=== PATIENT | male | born 1980 | race Caucasian/White ===

== ENCOUNTER → 2023-11-24 14:45 | Outpatient (CLI) | payer OTHER, SELFPAY ==
[2023-11-24 15:48] LABS: Influenza A - CEPHEID Flu A NEGATIVE (NEGATIVE); Influenza B - CEPHEID Flu B NEGATIVE (NEGATIVE); Respiratory Syncytial Virus Negative (Negative)
[2023-11-24 15:50] LABS: COVID-19 CEPHEID 4-PLEX PCR Negative (Negative)
== END ==
PROVIDERS: Visit Provider Physician Assistant Surgical
DX: J02.9 Acute pharyngitis, unspecified (principal); R05.1 Acute cough; R50.9 Fever, unspecified
CPT/HCPCS: 0241U; 87070

== ENCOUNTER → 2023-11-24 15:02 | Outpatient (CLI) | payer OTHER, SELFPAY ==
--- NOTE | 2023-11-24 15:05 | DI.RAD.S_ITS ---
PROCEDURE: XR CHEST 2V INDICATIONS: Cough, SOB TECHNIQUE: 2 views of the chest were acquired. COMPARISON: None. FINDINGS: Surgical changes and devices: None. Lungs and pleura: Lungs are clear. No pleural effusions or pneumothorax. Mediastinum: Mediastinal contours are normal. Heart size is normal. Bones and chest wall: No suspicious bony abnormalities. Soft tissues appear unremarkable. IMPRESSION: No acute cardiopulmonary abnormality is seen. Approved by: Demarco Rosa M.D. on 11/24/2023 at 15:15
== END ==
PROVIDERS: Referring Provider Physician Assistant Surgical; Visit Provider Physician Assistant Surgical
DX: J02.9 Acute pharyngitis, unspecified (principal); R05.1 Acute cough; R50.9 Fever, unspecified
CPT/HCPCS: 0241U; 71046; 87070

== ENCOUNTER 2024-04-07 20:05 | Inpatient (IN) | payer OTHER, SELFPAY ==
[2024-04-07] VITALS (17 sets, daily range): BP systolic 117–216; BP diastolic 69–115; PULSE 85–108; RESP 14–24; TEMP 36.3; O2SAT 91–97; BMI 35.4
[2024-04-07 20:58] LABS: Add Manual Diff / Slide Review NO; Basophils Absolute Auto 100 /uL (0-100); Eosinophils Absolute Auto 200 /uL (0-450); Eosinophils Percent Auto 2.5 % (2-4); Hematocrit 48.5 % (41-53); Hemoglobin 16.3 g/dL (13.5-17.5); Lymphocytes Absolute Auto 2400 /uL (1100-4500); Lymphocytes Percent Auto 24.3 % (25-40); Mean Corpuscular HGB Conc 33.6 % (30-36); Mean Corpuscular Hemoglobin 29.3 PG (26-34); Mean Corpuscular Volume 87.1 fL (80-100); Monocytes Absolute Auto 1100 /uL (0-900); Monocytes Percent Auto 11.1 % (3-14); Neutrophils Absolute Auto 6100 /uL (1500-7000); Neutrophils Percent Auto 61.1 % (50-75); Platelet Count 302 X10^3/uL (150-400); Red Blood Cell Count 5.57 X10^6/uL (4.5-5.9); Red Cell Distribution Width 14.1 % (11.6-14.8); White Blood Cell Count 9.9 X10^3/uL (4.5-11.0)
[2024-04-07 21:05] LABS: Alanine Aminotransferase 81 IU/L (<50); Albumin 4.6 g/dL (3.5-5.0); Albumin Globulin Ratio 1.4 (1.0-2.8); Alkaline Phosphatase 81 U/L (38-126); Aspartate Aminotransferase 46 IU/L (17-59); BUN Creatinine Ratio 20.5 (6-22); Bilirubin Total 0.7 mg/dL (0.2-1.3); Blood Urea Nitrogen 17 mg/dL (9-20); Carbon Dioxide 27 mmol/L (22-32); Chloride 103 mmol/L (98-107); Estimated Glomerular Filt Rate > 60 mL/min (>60); Globulin 3.3 g/dL (1.7-4.1); Glucose 104 mg/dL (70-100); HEMOLYSIS < 15 (0-50); Lipase 73 U/L (23-300); Potassium 4.1 mmol/L (3.4-5.1); Sodium 139 mmol/L (137-145); Total Protein 7.9 g/dL (6.3-8.2)
--- NOTE | 2024-04-07 21:34 | PC.NURSE ---
Pt attempted to void, unable to at this time.
--- NOTE | 2024-04-07 21:44 | ED_ITS ---
HPI - Abdominal Pain General Chief Complaint: Abdominal Pain Stated Complaint: abd px Time Seen by Provider: 04/07/24 20:51 Source: patient Mode of arrival: Ambulatory History of Present Illness HPI narrative: 43-year-old male without prior abdominopelvic surgeries, no prior of her lower endoscopies, complains of superior umbilical epigastric area discomfort since 0100 this morning, had nonbloody emesis and transient improvement of symptoms, now recurrent nausea with return of epigastric pain, some brackish taste in the back of his mouth. Has been on antacids in the past. Denies black or red stools. Last bowel movement yesterday. No injury or trauma or new activities. Denies fevers chills. Denies cough or shortness of breath. Denies painful or frequent urination. Related Data Home Medications Medication Instructions Recorded Confirmed bupropion HCl 150 mg tablet,12 hr 150 mg PO BID 04/08/24 04/08/24 sustained-release (Wellbutrin SR) Allergies Allergy/AdvReac Type Severity Reaction Status Date / Time No Known Drug Allergies Allergy Verified 04/07/24 20:15 Patient History Social History Smoking Status: Never smoker Smoking Status: Unknown if ever smoked Alcohol type: wine and hard liquor Exam Narrative Exam Narrative: GENERAL: Well-developed patient, in mild distress. HEAD: Atraumatic. Normocephalic. EYES: Pupils equal round and reactive. Extraocular motions intact. No scleral icterus. No injection or drainage. ENT: Nose without bleeding, purulent drainage. Throat without erythema, tonsillar hypertrophy or exudate. Airway patent. NECK: Trachea midline. Non tender CARDIOVASCULAR: Regular rate and rhythm without murmurs, gallops, or rubs. RESPIRATORY: Clear to auscultation. Breath sounds equal bilaterally. No wheezes, rales, or rhonchi. GASTROINTESTINAL: Abdomen soft, non-tender, nondistended. Not particularly tender epigastrium, nor supra umbilical region, no obvious ventral hernia including periumbilical region. EXTREMITIES: No edema or joint tenderness. BACK: Nontender without deformity or crepitance. No flank tenderness. NEURO: AOx3. Motor functions grossly nonfocal SKIN: No rash or erythema of visible areas Initial Vital Signs Initial Vital Signs: Vital Signs Temperature 97.3 F L 04/07/24 20:07 Pulse Rate 95 H 04/07/24 20:07 Respiratory Rate 20 04/07/24 20:07 Blood Pressure 150/94 H 04/07/24 20:07 Pulse Oximetry 96 04/07/24 20:07 Oxygen Delivery Method Room Air 04/07/24 20:07 Course Orders Ordered: ED Orders 04/07/24 20:43 Complete Blood Count AUTO DIFF Stat Comprehensive Metabolic Panel Stat Lactate (Lactic Acid) Stat Lipase Stat 04/07/24 21:55 CT abdomen pelvis w con Stat 04/07/24 22:20 Gastric Occult with pH Stat 04/07/24 22:30 Type and Screen Stat 04/07/24 23:25 Hemoglobin and Hematocrit Stat 04/08/24 00:06 Urine Microscopic Stat 04/08/24 00:34 Ammonia (NH3) Stat Complete Blood Count AUTO DIFF Stat Comprehensive Metabolic Panel Stat Lipase Stat 04/08/24 01:33 XR chest 1V Stat 04/08/24 02:29 XR abdomen 1V Stat Acetaminophen (Acetaminophen 325 Mg Tablet) 650 mg PO Q6H PRN PRN Reason: Fever/Mild Pain (1-3) Famotidine (Famotidine 20 Mg/2 Ml Vial) 20 mg IV NOW [facility] Last Admin: 04/07/24 22:24 Dose: 20 mg Documented By: MR Hydromorphone HCl (Hydromorphone 0.5 Mg Inj) 0.5 mg IV Q2H PRN PRN Reason: Pain, Severe (7-10) Sodium Chloride (Normal Saline 0.9%) 1,000 mls @ 100 mls/hr IV CONT [facility] Last Admin: 04/08/24 03:53 Dose: 100 mls/hr Documented By: AGW Naloxone HCl (Naloxone 0.4 Mg/Ml Vial) 0.2 mg IV Q2MIN PRN PRN Reason: Opiate Reversal Ondansetron HCl (Ondansetron 4 Mg/2 Ml Inj) 4 mg IV Q8HR PRN PRN Reason: Nausea And Vomiting Pantoprazole Sodium (Pantoprazole 40 Mg Vial) 40 mg IV BID [facility] Discontinued Medications Lorazepam (Lorazepam 2 Mg/Ml Inj) 1 mg IV NOW ONE Stop: 04/08/24 00:55 Last Admin: 04/08/24 01:01 Dose: 1 mg Documented By: SB Ondansetron HCl (Ondansetron 4 Mg/2 Ml Inj) 4 mg IV NOW ONE Stop: 04/07/24 22:19 Last Admin: 04/07/24 22:21 Dose: 4 mg Documented By: Pantoprazole Sodium (Pantoprazole 40 Mg Vial) 80 mg IV NOW ONE Stop: 04/07/24 22:16 Last Admin: 04/07/24 22:24 Dose: 80 mg Documented By: Vital Signs Vital signs: Vital Signs - 8 hr 04/07/24 21:30 04/07/24 21:31 04/07/24 21:31 Pulse Rate 91 H 89 Respiratory Rate 14 Blood Pressure 147/86 H Pulse Oximetry 97 94 Oxygen Delivery Method Oxygen Flow Rate 04/07/24 22:00 04/07/24 22:02 04/07/24 22:02 Pulse Rate 88 89 Respiratory Rate 23 20 Blood Pressure 216/115 H Pulse Oximetry 92 95 Oxygen Delivery Method Oxygen Flow Rate 04/07/24 22:18 04/07/24 22:18 04/07/24 22:29 Pulse Rate 108 H 108 H Respiratory Rate 16 24 Blood Pressure 154/75 H Pulse Oximetry 97 94 Oxygen Delivery Method Oxygen Flow Rate 04/07/24 22:30 04/07/24 22:31 04/07/24 23:00 Pulse Rate 107 H Respiratory Rate 20 Blood Pressure 131/70 117/69 Pulse Oximetry 94 Oxygen Delivery Method Room Air Oxygen Flow Rate 04/07/24 23:00 04/07/24 23:30 04/07/24 23:30 Pulse Rate 97 H 95 H Respiratory Rate 21 17 Blood Pressure 123/69 Pulse Oximetry 91 93 Oxygen Delivery Method Room Air Oxygen Flow Rate 04/07/24 23:45 04/07/24 23:59 04/07/24 23:59 Pulse Rate 96 H Respiratory Rate 20 Blood Pressure 125/77 Pulse Oximetry 94 94 Oxygen Delivery Method Nasal Cannula Oxygen Flow Rate 1 04/08/24 00:00 04/08/24 00:00 04/08/24 00:30 Pulse Rate 94 H 98 H Respiratory Rate 20 21 Blood Pressure 127/76 Pulse Oximetry 93 95 Oxygen Delivery Method Oxygen Flow Rate 04/08/24 00:30 04/08/24 01:00 04/08/24 01:00 Pulse Rate 99 H Respiratory Rate 19 Blood Pressure 136/71 133/65 Pulse Oximetry 95 Oxygen Delivery Method Nasal Cannula Oxygen Flow Rate 2 04/08/24 01:30 04/08/24 01:30 04/08/24 01:30 Pulse Rate 96 H Respiratory Rate 18 Blood Pressure 141/78 H 141/78 H Pulse Oximetry Oxygen Delivery Method Oxygen Flow Rate 04/08/24 01:36 04/08/24 01:36 04/08/24 02:00 Pulse Rate 108 H Respiratory Rate 14 Blood Pressure 138/78 128/78 Pulse Oximetry 95 Oxygen Delivery Method Room Air Oxygen Flow Rate 04/08/24 02:00 04/08/24 02:30 04/08/24 02:30 Pulse Rate 98 H 100 H Respiratory Rate 18 15 Blood Pressure 132/86 Pulse Oximetry 92 92 Oxygen Delivery Method Room Air Room Air Oxygen Flow Rate MDM - Abdominal Pain Lab Data Attestation: I reviewed the patient's lab results. Lab results narrative: White blood cell count 9900, hemoglobin 16.3, platelets adequate. Basic metabolic panel unremarkable. Liver functions and lipase normal. 04/07/24 23:25 04/07/24 20:43 Labs: Lab Results 04/07/24 04/07/24 04/07/24 Range/Units 20:43 22:20 22:30 WBC 9.9 (4.5-11.0) X10^3/uL RBC 5.57 (4.5-5.9) X10^6/uL Hgb 16.3 (13.5-17.5) g/dL Hct 48.5 (41-53) % MCV 87.1 (80-100) fL MCH 29.3 (26-34) PG MCHC 33.6 (30-36) % RDW 14.1 (11.6-14.8) % Plt Count 302 (150-400) X10^3/uL Neut % (Auto) 61.1 (50-75) % Lymph % (Auto) 24.3 L (25-40) % Mason % (Auto) 11.1 (3-14) % Eos % (Auto) 2.5 (2-4) % Baso % (Auto) 1.0 (0-2) % Neut # (Auto) 6100 (6784-4151) /uL Lymph # (Auto) 2400 (8518-3688) /uL Mason # (Auto) 1100 H (0-900) /uL Eos # (Auto) 200 (0-450) /uL Baso # (Auto) 100 (0-100) /uL Sodium 139 (137-145) mmol/L Potassium 4.1 (3.4-5.1) mmol/L Chloride 103 (98-107) mmol/L Carbon Dioxide 27 (22-32) mmol/L BUN 17 (9-20) mg/dL Creatinine 0.83 (0.66-1.25) mg/dL Estimated GFR > 60 (>60) mL/min BUN/Creatinine Ratio 20.5 (6-22) Glucose 104 H (70-100) mg/dL Lactate 1.5 (0.7-2.1) mmol/L Calcium 10.0 (8.4-10.2) mg/dL Total Bilirubin 0.7 (0.2-1.3) mg/dL AST 46 (17-59) IU/L ALT 81 H (<50) IU/L Alkaline Phosphatase 81 (38-126) U/L Total Protein 7.9 (6.3-8.2) g/dL Albumin 4.6 (3.5-5.0) g/dL Globulin 3.3 (1.7-4.1) g/dL Albumin/Globulin Ratio 1.4 (1.0-2.8) Lipase 73 (23-300) U/L Urine RBC (0-5/HPF) Urine WBC (0-5/HPF) Ur Squamous Epith Cells (0-5/HPF) Urine Bacteria (None) Ur Culture Indicated? Vol Urine Centrifuged Gastric Fluid pH 4 H (1-2) pH Gastric Occult Blood Positive H (NEGATIVE) Blood Type O Positive Antibody Screen Negative 04/07/24 04/08/24 Range/Units 23:25 00:06 WBC (4.5-11.0) X10^3/uL RBC (4.5-5.9) X10^6/uL Hgb 15.1 (13.5-17.5) g/dL Hct 44.9 (41-53) % MCV (80-100) fL MCH (26-34) PG MCHC (30-36) % RDW (11.6-14.8) % Plt Count (150-400) X10^3/uL Neut % (Auto) (50-75) % Lymph % (Auto) (25-40) % Mason % (Auto) (3-14) % Eos % (Auto) (2-4) % Baso % (Auto) (0-2) % Neut # (Auto) (9092-0921) /uL Lymph # (Auto) (1866-2646) /uL Mason # (Auto) (0-900) /uL Eos # (Auto) (0-450) /uL Baso # (Auto) (0-100) /uL Sodium (137-145) mmol/L Potassium (3.4-5.1) mmol/L Chloride (98-107) mmol/L Carbon Dioxide (22-32) mmol/L BUN (9-20) mg/dL Creatinine (0.66-1.25) mg/dL Estimated GFR (>60) mL/min BUN/Creatinine Ratio (6-22) Glucose (70-100) mg/dL Lactate (0.7-2.1) mmol/L Calcium (8.4-10.2) mg/dL Total Bilirubin (0.2-1.3) mg/dL AST (17-59) IU/L ALT (<50) IU/L Alkaline Phosphatase (38-126) U/L Total Protein (6.3-8.2) g/dL Albumin (3.5-5.0) g/dL Globulin (1.7-4.1) g/dL Albumin/Globulin Ratio (1.0-2.8) Lipase (23-300) U/L Urine RBC None seen (0-5/HPF) Urine WBC None seen (0-5/HPF) Ur Squamous Epith Cells None seen (0-5/HPF) Urine Bacteria None seen (None) Ur Culture Indicated? Cult not indicated Vol Urine Centrifuged 10ml (spun) Gastric Fluid pH (1-2) pH Gastric Occult Blood (NEGATIVE) Blood Type Antibody Screen Point of care testing: Urine Dip Bedside Urine Glucose Negative Bedside Urine Bilirubin - Negative Bedside Urine Ketone - Negative Urine Specific [place] 1.010 Bedside Urine Occult Blood - Negative Bedside Urine pH 5.0 Bedside Urine Protein +/- 15 Bedside Urine Urobilinogen - Negative Bedside Urine Nitrite - Negative Bedside Urine Leukocytes - Negative Esterase Imaging Data CT scan - abdomen/pelvis: Radiologist's Impression: [address] [address] [address] Scan Report Signed Patient: Bronson Swan MR#: [id number] : 1980 Acct:[id number] Age/Sex: 43 / M Date of Service: 04/07/24 Loc: ED Accession Number: [id number] Procedure: CT abdomen pelvis w con Ordering Provider: Jorje Haines MD PROCEDURE: CT ABDOMEN PELVIS W CON INDICATIONS: abd pain TECHNIQUE: After the administration of intravenous contrast, axial sections acquired from the lung bases to the pubic symphysis. Coronal and sagittal reformats were performed. For radiation dose reduction, the following was used: automated exposure control, adjustment of mA and/or kV according to patient size. COMPARISON: None. FINDINGS: Image quality: Diagnostic. Peritoneum: No pneumoperitoneum or ascites. Bones: No acute osseous abnormality. Lower Chest: Moderate hiatal hernia with fluid in the esophagus (2/). Liver: Normal in size and contour. Diffuse hypoattenuation. Gallbladder: No stones or pericholecystic fluid. Biliary tree: No intrahepatic or extrahepatic biliary ductal dilatation. Pancreas: Within normal limits. Spleen: Normal in size and contour. Kidneys: No hydronephrosis or obstructive urolithiasis. Adrenals: No adrenal nodularity. Bladder: Normal in size and wall thickness. : No acute abnormality. Stomach: Normal in size and contour. Ingested hyperintense material (2/38). Bowel: Dilated and fluid-filled small bowel loops with air-fluid levels up to 3 cm with transition points in the proximal jejunum (3/4), central mid abdomen (3/46) and right lower abdomen (4/83). Trace mesenteric edema at the right lower abdomen (3/48). No bowel wall hypoenhancement.. Appendix within normal limits with a single appendicolith (2/102). Lymph Nodes: No retroperitoneal, mesenteric, or inguinal lymphadenopathy. Vascular: No abdominal aortic aneurysm. The visualized arterial vasculature is patent. Soft Tissues: No acute abnormality. IMPRESSION: 1. Small-bowel obstruction with transition points in the central and right lower abdomen, with trace mesenteric edema. No other CT evidence of mesenteric ischemia. 2. Hepatic steatosis. 3. Moderate hiatal hernia with fluid in the esophagus. Dictated by: Cresencio Hendricks M.D. on 04/08/2024 at 0:03 Approved by: Cresencio Hendricks M.D. on 04/08/2024 at 0:10 [facility] Narrative Medical decision making narrative: 43-year-old male with epigastric supraumbilical area discomfort since 1 this morning, nausea and vomiting single episode that seemed to help the symptoms, now recurrent. Afebrile, sirs screen negative. No significant tenderness epigastrium or elsewhere on abdominal exam. Screening labs unremarkable. Patient we would like imaging, CT abdomen and pelvis ordered. IV Pepcid. Keep NPO. While in CT scanner just after completion of the CT study patient had emesis of large volume coffee grounds, gastroccult positive. IV Zofran, IV Protonix 80 mg bolus. Type and screen for blood. Repeat H&H from initial blood draw. Hemoglobin 16, repeat hemoglobin [address] scanning and coffee-ground emesis episode. CT abdomen and pelvis shows small bowel obstruction pattern with transition point mid abdomen and right lower quadrant, no perforation or abscess. See radiology report. IV Protonix bolus given prior. Type and screen for blood if needed. Nasogastric tube to low intermittent wall suction requested, premedication with IV Ativan, tolerated procedure well, NG tube in place. Abdominal x-ray single view, NG tube placement study. Impression: ?Nasogastric tube adequately position within the stomach. Large volume of stool within the colon suggesting constipation. Nonobstructive bowel gas pattern without pneumoperitoneum. ? See teleradiology report 0200, Case discussed with surgery Dr. Oneil, who reviewed images, agrees with treatment plan above, he can consult, admit to hospitalist service requested. Case communicated to hospitalist Dr. Knowles, accepts patient for admission Critical Care Time Critical Care Time Critical Care Time: Yes Total Critical Care Time: 35 Attestation: The high probability of a clinically significant, sudden or life threatening deterioration of the [abdominopelvic, gastrointestinal] system(s) required my full and direct attention, intervention and personal management. The aggregate critical care time was [35] minutes. This time is in addition to time spent performing reported procedures but includes the following: [x] Data Review and interpretation [x] Patient assessment and monitoring of vital signs [x] Documentation [x] Medication orders and management Discharge Plan Departure Patient Disposition: Admitted as Observation Clinical Impression: Acute upper GI bleeding, Small bowel obstruction Admit Date/Time: 04/08/24 02:37 Admit Provider: Teodoro Knowles
--- NOTE | 2024-04-07 21:55 | DI.CT.S_ITS ---
PROCEDURE: CT ABDOMEN PELVIS W CON INDICATIONS: abd pain TECHNIQUE: After the administration of intravenous contrast, axial sections acquired from the lung bases to the pubic symphysis. Coronal and sagittal reformats were performed. For radiation dose reduction, the following was used: automated exposure control, adjustment of mA and/or kV according to patient size. COMPARISON: None. FINDINGS: Image quality: Diagnostic. Peritoneum: No pneumoperitoneum or ascites. Bones: No acute osseous abnormality. Lower Chest: Moderate hiatal hernia with fluid in the esophagus (2/25). Liver: Normal in size and contour. Diffuse hypoattenuation. Gallbladder: No stones or pericholecystic fluid. Biliary tree: No intrahepatic or extrahepatic biliary ductal dilatation. Pancreas: Within normal limits. Spleen: Normal in size and contour. Kidneys: No hydronephrosis or obstructive urolithiasis. Adrenals: No adrenal nodularity. Bladder: Normal in size and wall thickness. : No acute abnormality. Stomach: Normal in size and contour. Ingested hyperintense material (2/38). Bowel: Dilated and fluid-filled small bowel loops with air-fluid levels up to 3 cm with transition points in the proximal jejunum (3/4), central mid abdomen (3/46) and right lower abdomen (4/83). Trace mesenteric edema at the right lower abdomen (3/48). No bowel wall hypoenhancement.. Appendix within normal limits with a single appendicolith (2/102). Lymph Nodes: No retroperitoneal, mesenteric, or inguinal lymphadenopathy. Vascular: No abdominal aortic aneurysm. The visualized arterial vasculature is patent. Soft Tissues: No acute abnormality. IMPRESSION: 1. Small-bowel obstruction with transition points in the central and right lower abdomen, with trace mesenteric edema. No other CT evidence of mesenteric ischemia. 2. Hepatic steatosis. 3. Moderate hiatal hernia with fluid in the esophagus. Dictated by: Cresencio Hendricks M.D. on 04/08/2024 at 0:03 Approved by: Cresencio Hendricks M.D. on 04/08/2024 at 0:10
[2024-04-07] MEDS: ONDANSETRON 4 MG/2 ML INJ IV (22:21)
[2024-04-07] MEDS: PANTOPRAZOLE 40 MG VIAL 80 MG IV (22:24)
[2024-04-07] MEDS: FAMOTIDINE 20 MG/2 ML VIAL IV (22:24)
--- NOTE | 2024-04-07 22:41 | PC.NURSE ---
Patient vomited after CT scan completed; approximately 600-700ml coffee ground emesis came out; sample was sent for gastric occult ph testing.
[2024-04-07 22:55] LABS: Occult Blood Gastric Fluid POSITIVE (NEGATIVE); PH Gastric Fluid 4 pH (1-2)
[2024-04-07 23:37] LABS: Hematocrit 44.9 % (41-53); Hemoglobin 15.1 g/dL (13.5-17.5)
[2024-04-08] VITALS (15 sets, daily range): BP systolic 123–143; BP diastolic 65–90; PULSE 79–108; RESP 14–28; TEMP 36.6–36.9; O2SAT 92–99; BMI 35.4
--- NOTE | 2024-04-08 | DI.RAD.S_ITS ---
PROCEDURE: XR GASTROGRAFIN CHALLENGE COMPARISON: [facility], CR, XR ABDOMEN 1V, 04/08/2024, 2:52. INDICATIONS: SBO FINDINGS: Contrast is seen throughout the small bowel and colon into the rectum. Mildly dilated loops of small bowel measure up to 3.4 centimeters. Enteric tube with tip and side port projecting below the diaphragm. IMPRESSION: Contrast is seen throughout the small bowel and colon into the rectum. Mildly dilated loops of small bowel measuring up to 3.4 centimeters. Dictated by: Twin Evans M.D. on 04/08/2024 at 17:18 Approved by: Twin Evans M.D. on 04/08/2024 at 17:20
[2024-04-08 00:01] LABS: Lactate (Lactic Acid) 1.5 mmol/L (0.7-2.1)
[2024-04-08 00:52] LABS: Bacteria Urine None Seen; Culture Indicated Urine Cult Not Indicated; RBC Urine None Seen (0-5/HPF); Squamous Epithelial Cell Urine None Seen (0-5/HPF); Urine Volume 10mL (spun); WBC Urine None Seen (0-5/HPF)
[2024-04-08] MEDS: LORazepam 2 MG/ML INJ 1 MG IV (01:01)
--- NOTE | 2024-04-08 01:33 | DI.RAD.S_ITS ---
PROCEDURE: XR CHEST 1V INDICATIONS: NG tube placement TECHNIQUE: One view of the chest was acquired. COMPARISON: [facility], CR, XR CHEST 2V, 11/24/2023, 15:11. FINDINGS: Surgical changes and devices: Enteric tube tip and side port lodged in the mid-distal thoracic esophagus. Lungs and pleura: Low lung volumes without focal lung consolidation. No pleural effusions or pneumothorax. Mediastinum: Mediastinal contours appear normal. Heart size is normal. Bones and chest wall: No suspicious bony lesions. Overlying soft tissues appear unremarkable. IMPRESSION: Enteric tube tip and side port in the mid-distal thoracic esophagus. Further advancement by 20-30 cm recommended with repeat abdomen radiograph focusing on the upper quadrants. Dictated by: Cresencio Hendricks M.D. on 04/08/2024 at 2:00 Approved by: Cresencio Hendricks M.D. on 04/08/2024 at 2:01
--- NOTE | 2024-04-08 02:28 | PC.NURSE ---
NG tube advanced approx 25cm per radiologist recommendation from [facility]. Repeat xray ordered for confirmation.
--- NOTE | 2024-04-08 02:29 | DI.RAD.S_ITS ---
PROCEDURE: XR ABDOMEN 1V INDICATIONS: NG tube adjustment TECHNIQUE: One view of the abdomen acquired. COMPARISON: [facility], CT, CT ABDOMEN PELVIS W CON, 04/07/2024, 22:00. FINDINGS: Surgical changes and devices: Enteric tube with tip and side port projecting over the expected location of the stomach. Bowel: Nonobstructive bowel gas pattern. Large stool burden. Soft tissues: No suspicious abdominal calcifications. Visualized solid organ contours appear normal in size. Contrast within the urinary bladder. Bones: No suspicious bony lesions. IMPRESSION: Nasogastric tube with tip and side port projecting over the expected location of the stomach. Nonobstructive bowel gas pattern. Large stool burden, correlate for constipation. Findings are concordant with preliminary interpretation provided by [facility]. Dictated by: Twin Evans M.D. on 04/08/2024 at 8:33 Approved by: Twin Evans M.D. on 04/08/2024 at 8:40
[2024-04-08] MEDS: SODIUM CHLORIDE 0.9% 1,000 ML 100 ML IV (03:53)
--- NOTE | 2024-04-08 07:01 | PM.HP.1 ---
History of Present Illness History of Present Illness Chief complaint: abd px Narrative: 43-year-old male with past medical history of depression low denies any prior history of abdominal surgery presents with abdominal pain. Per the patient's report, the patient started to have upper abdominal pain earlier this morning. The patient started to have nausea and nonbloody vomiting. The patient denies any prior history of GI bleeding and has never had an endoscopy before. The patient denies any alcohol abuse or any excessive use of NSAID. Otherwise the patient denies any diarrhea, bloody stool, melena fever, chills, chest pain, shortness of breath, coughing or dysuria. In our emergency room, the patient was hemodynamically stable. Labs were relatively benign with hemoglobin 16. ALT 81. Patient did have an emesis that was coffee-ground while in our ER per the ER physician which was occult positive. CT scan shows signs of small bowel obstruction. The patient was given IV fluid, IV antiemetic, pain control as well as IV pantoprazole. General surgery was consulted and recommended to admit the patient. NG tube was placed. [facility] [place] Social History Smoking Status: Never smoker Meds Home Medications and Allergies Home Medications Medication Instructions Recorded Confirmed Type bupropion HCl 150 mg tablet,12 hr 150 mg PO BID 04/08/24 04/08/24 History sustained-release (Wellbutrin SR) Allergies Allergy/AdvReac Type Severity Reaction Status Date / Time No Known Drug Allergies Allergy Verified 04/07/24 20:15 Review of Systems Review of Systems ROS: Yes All systems reviewed with the patient and are negative except as otherwise documented Exam Vital Signs (past 8 hours): - 04/07/24 23:30 04/07/24 23:30 04/07/24 23:45 Temperature Pulse Rate 95 H Respiratory Rate 17 Blood Pressure 123/69 Pulse Oximetry 93 94 Oxygen Delivery Method Nasal Cannula Oxygen Flow Rate 1 04/07/24 23:59 04/07/24 23:59 04/08/24 00:00 Temperature Pulse Rate 96 H 94 H Respiratory Rate 20 20 Blood Pressure 125/77 Pulse Oximetry 94 93 Oxygen Delivery Method Oxygen Flow Rate 04/08/24 00:00 04/08/24 00:30 04/08/24 00:30 Temperature Pulse Rate 98 H Respiratory Rate 21 Blood Pressure 127/76 136/71 Pulse Oximetry 95 Oxygen Delivery Method Oxygen Flow Rate 04/08/24 01:00 02/18/25 01:00 04/08/24 01:30 Temperature Pulse Rate 99 H 96 H Respiratory Rate 19 18 Blood Pressure 133/65 Pulse Oximetry 95 Oxygen Delivery Method Nasal Cannula Oxygen Flow Rate 2 04/08/24 01:30 04/08/24 01:30 04/08/24 01:36 Temperature Pulse Rate Respiratory Rate Blood Pressure 141/78 H 141/78 H 138/78 Pulse Oximetry Oxygen Delivery Method Oxygen Flow Rate 04/08/24 01:36 04/08/24 02:00 04/08/24 02:00 Temperature Pulse Rate 108 H 98 H Respiratory Rate 14 18 Blood Pressure 128/78 Pulse Oximetry 95 92 Oxygen Delivery Method Room Air Room Air Oxygen Flow Rate 04/08/24 02:30 04/08/24 02:30 04/08/24 03:00 Temperature Pulse Rate 100 H 97 H Respiratory Rate 15 28 H Blood Pressure 132/86 Pulse Oximetry 92 96 Oxygen Delivery Method Room Air Nasal Cannula Oxygen Flow Rate 2 04/08/24 03:01 04/08/24 03:01 04/08/24 03:14 Temperature Pulse Rate 97 H Respiratory Rate 16 Blood Pressure 123/90 Pulse Oximetry 97 Oxygen Delivery Method Nasal Cannula Nasal Cannula Oxygen Flow Rate 2 04/08/24 03:35 Temperature 97.8 F Pulse Rate 82 Respiratory Rate 20 Blood Pressure 124/87 Pulse Oximetry 97 Oxygen Delivery Method Oxygen Flow Rate 2 Oxygen Delivery Method Nasal Cannula Oxygen Flow Rate 2 Narrative Exam Narrative: Physical Exam: GENERAL: The patient is not in any acute distressed. Awake and alert. HEENT: Nonicteric sclerae, PERRLA, EOMI. Oropharynx clear. Moist mucous membranes. Conjunctivae appear well perfused. HEART: Regular rate and rhythm without murmurs. No lower extremities edema. LUNGS: Clear to auscultation bilaterally. No wheezing, crackles or rhonchi ABDOMEN: Soft, positive bowel sounds, nontender. SKIN: No rash, no excessive bruising, petechiae, or purpura. NEUROLOGIC: AxO x 3. Cranial nerves II-XII intact without motor/sensory deficit. Objective Labs 04/07/24 23:25 04/07/24 20:43 Labs: Laboratory Results - last 24 hr 04/07/24 04/07/24 04/07/24 20:43 22:20 22:30 WBC 9.9 RBC 5.57 Hgb 16.3 Hct 48.5 MCV 87.1 MCH 29.3 MCHC 33.6 RDW 14.1 Plt Count 302 Neut % (Auto) 61.1 Lymph % (Auto) 24.3 L [place] % (Auto) 11.1 Eos % (Auto) 2.5 Baso % (Auto) 1.0 Neut # (Auto) 6100 Lymph # (Auto) 2400 [place] # (Auto) 1100 H Eos # (Auto) 200 Baso # (Auto) 100 Sodium 139 Potassium 4.1 Chloride 103 Carbon Dioxide 27 BUN 17 Creatinine 0.83 Estimated GFR > 60 BUN/Creatinine Ratio 20.5 Glucose 104 H Lactate 1.5 Calcium 10.0 Total Bilirubin 0.7 AST 46 ALT 81 H Alkaline Phosphatase 81 Total Protein 7.9 Albumin 4.6 Globulin 3.3 Albumin/Globulin Ratio 1.4 Lipase 73 Urine RBC Urine WBC Ur Squamous Epith Cells Urine Bacteria Ur Culture Indicated? Vol Urine Centrifuged Gastric Fluid pH 4 H Gastric Occult Blood Positive H Blood Type O Positive Antibody Screen Negative 04/07/24 04/08/24 23:25 00:06 WBC RBC Hgb 15.1 Hct 44.9 MCV MCH MCHC RDW Plt Count Neut % (Auto) Lymph % (Auto) [place] % (Auto) Eos % (Auto) Baso % (Auto) Neut # (Auto) Lymph # (Auto) [place] # (Auto) Eos # (Auto) Baso # (Auto) Sodium Potassium Chloride Carbon Dioxide BUN Creatinine Estimated GFR BUN/Creatinine Ratio Glucose Lactate Calcium Total Bilirubin AST ALT Alkaline Phosphatase Total Protein Albumin Globulin Albumin/Globulin Ratio Lipase Urine RBC None seen Urine WBC None seen Ur Squamous Epith Cells None seen Urine Bacteria None seen Ur Culture Indicated? Cult not indicated Vol Urine Centrifuged 10ml (spun) Gastric Fluid pH Gastric Occult Blood Blood Type Antibody Screen Assessment & Plan Assessment & Plan narrative: Small bowel obstruction. Admit the patient to medical inpatient. NPO. IV fluid. Pain control. Continue NGT. IV antiemetics prn. Appreciate general surgery input and management. Possible upper GI bleed. Continue to monitor hemoglobin and recurrent bleeding. Patient is hemodynamically stable. Continue IV pantoprazole. Patient denies any history of alcohol abuse or NSAID excessive use. Endoscope per general surgery. Depression. Resume home medication when able to take p.o. DVT prophylaxis SCDs due to GI bleeding. CODE STATUS full code. Disposition likely home in 2 days. Right thumb infection. Admit the patient to medical inpatient. Of note orthopedic surgeon was consulted and recommended IV antibiotics for now. The patient did have her fingernail of the right thumb removed by ER physician. Continue pain control. IV fluid. Hold off any CT imaging for now per orthopedic surgery. Appreciate further input and management per orthopedic surgeon. Will continue vancomycin and switch CSF for p.m. as he has broader coverage since patient fell Keflex treatment twice as outpatient. Hypertension. Monitor blood pressure and resume home medication accordingly. Anxiety. Resume home medication. DVT prophylaxis SCDs CODE STATUS full code. Disposition likely home in 2 days. Time-Based Coding :: [TOTAL MINUTES] spent with patient and on the chart (including review of chart, obtaining history, exam, reviewing outside data, placing orders, documenting exam and treatment plan, and counseling patient) on [DATE]. Quality VTE Deep Vein Thrombosis/Pulmonary Embolism Present on Admission: No
[2024-04-08 07:48] LABS: Add Manual Diff / Slide Review NO; Basophils Absolute Auto 100 /uL (0-100); Basophils Percent Auto 0.9 % (0-2); Eosinophils Absolute Auto 300 /uL (0-450); Eosinophils Percent Auto 3.8 % (2-4); Hematocrit 42.5 % (41-53); Hemoglobin 14.1 g/dL (13.5-17.5); Lymphocytes Absolute Auto 1700 /uL (1100-4500); Lymphocytes Percent Auto 22.7 % (25-40); Mean Corpuscular HGB Conc 33.1 % (30-36); Mean Corpuscular Hemoglobin 28.8 PG (26-34); Mean Corpuscular Volume 87.1 fL (80-100); Monocytes Absolute Auto 900 /uL (0-900); Monocytes Percent Auto 11.9 % (3-14); Neutrophils Absolute Auto 4600 /uL (1500-7000); Neutrophils Percent Auto 60.7 % (50-75); Platelet Count 257 X10^3/uL (150-400); Red Blood Cell Count 4.88 X10^6/uL (4.5-5.9); White Blood Cell Count 7.6 X10^3/uL (4.5-11.0)
[2024-04-08 07:55] LABS: Ammonia (NH3) < 9 umol/L (9-30)
[2024-04-08 08:01] LABS: Alanine Aminotransferase 61 IU/L (<50); Albumin 3.9 g/dL (3.5-5.0); Albumin Globulin Ratio 1.6 (1.0-2.8); Alkaline Phosphatase 68 U/L (38-126); Aspartate Aminotransferase 36 IU/L (17-59); BUN Creatinine Ratio 23.9 (6-22); Bilirubin Total 0.6 mg/dL (0.2-1.3); Blood Urea Nitrogen 21 mg/dL (9-20); Calcium 9.1 mg/dL (8.4-10.2); Carbon Dioxide 25 mmol/L (22-32); Chloride 105 mmol/L (98-107); Estimated Glomerular Filt Rate > 60 mL/min (>60); Globulin 2.5 g/dL (1.7-4.1); Glucose 107 mg/dL (70-100); HEMOLYSIS < 15 (0-50); Lipase 92 U/L (23-300); Potassium 4.1 mmol/L (3.4-5.1); Sodium 139 mmol/L (137-145); Total Protein 6.4 g/dL (6.3-8.2)
--- NOTE | 2024-04-08 08:12 | PM.HP.1 ---
History of Present Illness History of Present Illness Date Patient Seen: 04/08/24 Chief complaint: abd px Narrative: From night doctor: 43-year-old male with past medical history of depression low denies any prior history of abdominal surgery presents with abdominal pain. Per the patient's report, the patient started to have upper abdominal pain earlier this morning. The patient started to have nausea and nonbloody vomiting. The patient denies any prior history of GI bleeding and has never had an endoscopy before. The patient denies any alcohol abuse or any excessive use of NSAID. Otherwise the patient denies any diarrhea, bloody stool, melena fever, chills, chest pain, shortness of breath, coughing or dysuria. In our emergency room, the patient was hemodynamically stable. Labs were relatively benign with hemoglobin 16. ALT 81. Patient did have an emesis that was coffee-ground while in our ER per the ER physician which was occult positive. CT scan shows signs of small bowel obstruction. The patient was given IV fluid, IV antiemetic, pain control as well as IV pantoprazole. General surgery was consulted and recommended to admit the patient. NG tube was placed. Subjective: He denies history of abdomen surgery or bowel obstruction. His symptoms began yesterday abruptly. No flatus or BM overnight. He was still somewhat distended. Denies smoking, does drink alcohol about 1 drink a day. No history of ulcers. NG tube has improved his symptoms. General surgery is consulted and this is pending. [facility] Social History household members: spouse and children Smoking Status: Never smoker Meds Home Medications and Allergies Home Medications Medication Instructions Recorded Confirmed Type bupropion HCl 150 mg tablet,12 hr 150 mg PO BID 04/08/24 04/08/24 History sustained-release (Wellbutrin SR) Allergies Allergy/AdvReac Type Severity Reaction Status Date / Time No Known Drug Allergies Allergy Verified 04/07/24 20:15 Review of Systems Review of Systems Narrative: All else reviewed and otherwise unremarkable except as noted in the history and physical. Exam Vital Signs (past 8 hours): - 04/08/24 00:30 04/08/24 00:30 04/08/24 01:00 Temperature Pulse Rate 98 H 99 H Respiratory Rate 21 19 Blood Pressure 136/71 Pulse Oximetry 95 95 Oxygen Delivery Method Nasal Cannula Oxygen Flow Rate 2 04/08/24 01:00 04/08/24 01:30 04/08/24 01:30 Temperature Pulse Rate 96 H Respiratory Rate 18 Blood Pressure 133/65 141/78 H Pulse Oximetry Oxygen Delivery Method Oxygen Flow Rate 04/08/24 01:30 04/08/24 01:36 04/08/24 01:36 Temperature Pulse Rate 108 H Respiratory Rate 14 Blood Pressure 141/78 H 138/78 Pulse Oximetry 95 Oxygen Delivery Method Room Air Oxygen Flow Rate 04/08/24 02:00 04/08/24 02:00 04/08/24 02:30 Temperature Pulse Rate 98 H 100 H Respiratory Rate 18 15 Blood Pressure 128/78 Pulse Oximetry 92 92 Oxygen Delivery Method Room Air Room Air Oxygen Flow Rate 04/08/24 02:30 04/08/24 03:00 04/08/24 03:01 Temperature Pulse Rate 97 H 97 H Respiratory Rate 28 H 16 Blood Pressure 132/86 Pulse Oximetry 96 97 Oxygen Delivery Method Nasal Cannula Nasal Cannula Oxygen Flow Rate 2 2 04/08/24 03:01 04/08/24 03:14 04/08/24 03:35 Temperature 97.8 F Pulse Rate 82 Respiratory Rate 20 Blood Pressure 123/90 124/87 Pulse Oximetry 97 Oxygen Delivery Method Nasal Cannula Oxygen Flow Rate 2 Oxygen Delivery Method Nasal Cannula Oxygen Flow Rate 2 Narrative Exam Narrative: NAD, alert and oriented, fluent speech, calm. NG tube Normocephalic skull, EOMI, anicteric sclera, symmetric pupils. Oropharynx unremarkable, no droop. Neck supple, midline trachea, no adenopathy. Lungs clear, normal rate and effort. Heart regular, no murmur gallop or rub. Abdomen is soft, distended, hypertympanic, nontender. Increased bowel tones are noted.. Extremities are free of edema. Skin is free of rash or lesions. Joints are not swollen or deformed. Judgment appears to be normal. Objective Imaging Multiple studies:: Radiologist's impression: Chest x-ray: My read, clear lung chaudhry and nonspecific air pattern. Abdomen x-ray: asogastric tube with tip and side port projecting over the expected location of the stomach. Nonobstructive bowel gas pattern. Large stool burden, correlate for constipation. Chest x-ray: Enteric tube tip and side port in the mid-distal thoracic esophagus. Further advancement by 20-30 cm recommended with repeat abdomen radiograph focusing on the upper quadrants. Abdomen pelvis CT: 1. Small-bowel obstruction with transition points in the central and right lower abdomen, with trace mesenteric edema. No other CT evidence of mesenteric ischemia. 2. Hepatic steatosis. 3. Moderate hiatal hernia with fluid in the esophagus. Labs 04/08/24 07:34 04/08/24 07:34 Labs: Laboratory Results - last 24 hr 04/07/24 04/07/24 04/07/24 20:43 22:20 22:30 WBC 9.9 RBC 5.57 Hgb 16.3 Hct 48.5 MCV 87.1 MCH 29.3 MCHC 33.6 RDW 14.1 Plt Count 302 Neut % (Auto) 61.1 Lymph % (Auto) 24.3 L [place] % (Auto) 11.1 Eos % (Auto) 2.5 Baso % (Auto) 1.0 Neut # (Auto) 6100 Lymph # (Auto) 2400 [place] # (Auto) 1100 H Eos # (Auto) 200 Baso # (Auto) 100 Sodium 139 Potassium 4.1 Chloride 103 Carbon Dioxide 27 BUN 17 Creatinine 0.83 Estimated GFR > 60 BUN/Creatinine Ratio 20.5 Glucose 104 H Lactate 1.5 Calcium 10.0 Total Bilirubin 0.7 AST 46 ALT 81 H Alkaline Phosphatase 81 Ammonia Total Protein 7.9 Albumin 4.6 Globulin 3.3 Albumin/Globulin Ratio 1.4 Lipase 73 Urine RBC Urine WBC Ur Squamous Epith Cells Urine Bacteria Ur Culture Indicated? Vol Urine Centrifuged Gastric Fluid pH 4 H Gastric Occult Blood Positive H Blood Type O Positive Antibody Screen Negative 04/07/24 04/08/24 04/08/24 23:25 00:06 07:34 WBC 7.6 RBC 4.88 Hgb 15.1 14.1 Hct 44.9 42.5 MCV 87.1 MCH 28.8 MCHC 33.1 RDW 14.0 Plt Count 257 Neut % (Auto) 60.7 Lymph % (Auto) 22.7 L [place] % (Auto) 11.9 Eos % (Auto) 3.8 Baso % (Auto) 0.9 Neut # (Auto) 4600 Lymph # (Auto) 1700 [place] # (Auto) 900 Eos # (Auto) 300 Baso # (Auto) 100 Sodium 139 Potassium 4.1 Chloride 105 Carbon Dioxide 25 BUN 21 H Creatinine 0.88 Estimated GFR > 60 BUN/Creatinine Ratio 23.9 H Glucose 107 H Lactate Calcium 9.1 Total Bilirubin 0.6 AST 36 ALT 61 H Alkaline Phosphatase 68 Ammonia < 9 L Total Protein 6.4 Albumin 3.9 Globulin 2.5 Albumin/Globulin Ratio 1.6 Lipase 92 Urine RBC None seen Urine WBC None seen Ur Squamous Epith Cells None seen Urine Bacteria None seen Ur Culture Indicated? Cult not indicated Vol Urine Centrifuged 10ml (spun) Gastric Fluid pH Gastric Occult Blood Blood Type Antibody Screen Assessment & Plan Assessment & Plan narrative: 1. Small bowel obstruction. Present on admission and active. 2. Possible upper GI bleed. Present on admission and active. 3. Depression. Stable. 4. Obesity class 2 with BMI of 35, stable. Plan: -NG tube to suction -surgical consult, consider Gastrografin challenge. -nonspecific care pattern noted on plain imaging, transition point noted on CT. -denies symptoms withdrawal, monitor for. -monitor hemoglobin, PPI. DOLORES: 04/10. DVT prophylaxis SCDs due to GI bleeding. CODE STATUS full code. Anticipate a 2 midnight stay, supports inpatient status. Time-Based Coding :: 35 min spent with patient and on the chart (including review of chart, obtaining history, exam, reviewing outside data, placing orders, documenting exam and treatment plan, and counseling patient) on 04/08. Quality VTE Deep Vein Thrombosis/Pulmonary Embolism Present on Admission: No MIPS - Admit I confirm the patient?s Advance Care Plan is present, Code status is documented, Surrogate decision maker is in patient?s record [If Yes, STOP here]: Yes
--- NOTE | 2024-04-08 08:48 | DI.RAD.S_ITS ---
PROCEDURE: XR CHEST 1V INDICATIONS: ng tube placement TECHNIQUE: One view of the chest was acquired. COMPARISON: [facility], , XR CHEST 1V, 04/08/2024, 1:38. FINDINGS: Surgical changes and devices: Nasogastric tube in the stomach Lungs and pleura: Lungs are clear. No pleural effusions or pneumothorax. Mediastinum: Mediastinal contours appear normal. Heart size is normal. Bones and chest wall: No suspicious bony lesions. Overlying soft tissues appear unremarkable. IMPRESSION: Nasogastric tube well positioned in the stomach Approved by: Demarco Rosa M.D. on 04/08/2024 at 11:07
[2024-04-08] MEDS: PANTOPRAZOLE 40 MG VIAL IV ×2 (09:36→20:48)
--- NOTE | 2024-04-08 10:54 | CM.DANOTE ---
Initial DCP Assessment Visit Note Reviewed EMR and team rounds for patient's medical status and updates. Met with patient at bedside to introduce self and role. Patient was found to be alert and oriented. Patient was visibly uncomfortable when we spoke, he was still experiencing abdominal pain. Patient said he resides at home with his and two sons. deejay is for patient to discharge home with transportation help from his spouse if needed. Payor: Lesley DE LA CRUZ PCP: None PAtient is a 43 year old male who presented to the ER on 04/07/24 for abdominal pain, nausea, and vomiting. at the ER patient was found to have a small bowel obstruction seen on CT scan and a hiatal hernial. Patient was also found to have an upper GI bleed with coffee ground emesis at the ER. A nasogastic tube was placed. Patient will be having endoscopy today. Vomiting appears to be controlled currently. Patient is planning to discharge home after this hospitalization with help from his spouse if needed. 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 Patient will lean on his spouse to help with caregiving if needed. DCP will continue to monitor for for discharge needs. Discharge Planning/Care Management CM Discharge Assessment Start: 04/08/24 09:32 Freq: Status: Active Protocol: Document 04/08/24 09:32 NIRMAL (Rec: 04/08/24 09:38 NIRMAL [id number]) Discharge Planning Assessment Assigned Biochemical Development Engineer Jovany Quinones RN DPOA/Assigned Designee Name None Advance Directives? No Advance Directives on File No History Provided By Patient,Medical Record Expected Length of Stay 2 Has Patient been admitted in last 30 No days? Prior Living Arrangements House Household Members spouse,children Comment Patient resides with his spouse and two sons. Type of transporation used prior to Drives own vehicle admit Independent with ADL's Yes Is patient alert and oriented? Yes Comment Patient does not need any assistance. Caregiver for Another Yes: Patient provides care for his 18 year old son. Comment No services used. Comment None Comment Home with assistance from spouse. Barriers to Discharge No Discharge Plan Home Transportation Arrangement Transportation by self or spouse if patient is not able to self transport. Referrals Initiated None needed Whiteboard Updated in Patient Room with Yes name and ext. # of Biochemical Development Engineer Review Status In Process Please Provide Date Initial DC 04/08/24 Assessment Was Performed
--- NOTE | 2024-04-08 12:09 | PM.CN.IH.1 ---
History of Present Illness Consult details Date Patient Seen: 04/08/24 Time Patient Seen: 12:10 Chief complaint: abd px Reason for consult: Small bowel obstruction, gastric occult positive emesis Requesting provider: Adria Malave Narrative: 43-year-old white male, obese, no prior abdominal surgeries presents with 2 episodes of emesis that has a blood tinge to it and was Hemoccult positive. CT scan suggestive of a small-bowel obstruction. He has not had a bowel movement for 2 days. He did not eat much yesterday. The day before he did not eat anything unusual, accepted gluten free pizza around midnight the night before. No family history of Crohn's disease, ulcerative colitis or colon cancer. Meds Home Medications and Allergies Home Medications Medication Instructions Recorded Confirmed Type bupropion HCl 150 mg tablet,12 hr 150 mg PO BID 04/08/24 04/08/24 History sustained-release (Wellbutrin SR) Allergies Allergy/AdvReac Type Severity Reaction Status Date / Time No Known Drug Allergies Allergy Verified 04/07/24 20:15 Review of Systems Review of Systems ROS: Yes All systems reviewed with the patient and are negative except as otherwise documented Exam Vital Signs (past 8 hours): - 04/08/24 07:00 04/08/24 07:10 Temperature 98.0 F Pulse Rate 94 H Respiratory Rate 15 Blood Pressure 137/82 Pulse Oximetry 98 99 Oxygen Delivery Method Nasal Cannula Oxygen Flow Rate 0 2 Oxygen Delivery Method Nasal Cannula Oxygen Flow Rate 2 Narrative Exam Narrative: Gen: NAD, sitting comfortably in bed, appears well HEENT: Sclera are anicteric, head is normocephalic and atraumatic, trachea is midline. CV: RRR, no JVD Resp: clear to auscultation bilaterally, equal chest wall movement bilaterally Abd: soft, nontender, distended Ext: no edema, full range of motion Neuro: Cranial nerves II-XII grossly intact, no focal deficits Skin: No erythema or ecchymosis Objective Imaging CT scan - abdomen: My impression: CT scan is suggestive of a bowel obstruction, less likely gastroenteritis. Contrast challenge pending Labs 04/08/24 07:34 04/08/24 07:34 Labs: Laboratory Results - last 24 hr 04/07/24 04/07/24 04/07/24 20:43 22:20 22:30 WBC 9.9 RBC 5.57 Hgb 16.3 Hct 48.5 MCV 87.1 MCH 29.3 MCHC 33.6 RDW 14.1 Plt Count 302 Neut % (Auto) 61.1 Lymph % (Auto) 24.3 L [place] % (Auto) 11.1 Eos % (Auto) 2.5 Baso % (Auto) 1.0 Neut # (Auto) 6100 Lymph # (Auto) 2400 [place] # (Auto) 1100 H Eos # (Auto) 200 Baso # (Auto) 100 Sodium 139 Potassium 4.1 Chloride 103 Carbon Dioxide 27 BUN 17 Creatinine 0.83 Estimated GFR > 60 BUN/Creatinine Ratio 20.5 Glucose 104 H Lactate 1.5 Calcium 10.0 Total Bilirubin 0.7 AST 46 ALT 81 H Alkaline Phosphatase 81 Ammonia Total Protein 7.9 Albumin 4.6 Globulin 3.3 Albumin/Globulin Ratio 1.4 Lipase 73 Urine RBC Urine WBC Ur Squamous Epith Cells Urine Bacteria Ur Culture Indicated? Vol Urine Centrifuged Gastric Fluid pH 4 H Gastric Occult Blood Positive H Blood Type O Positive Antibody Screen Negative 04/07/24 04/08/24 04/08/24 23:25 00:06 07:34 WBC 7.6 RBC 4.88 Hgb 15.1 14.1 Hct 44.9 42.5 MCV 87.1 MCH 28.8 MCHC 33.1 RDW 14.0 Plt Count 257 Neut % (Auto) 60.7 Lymph % (Auto) 22.7 L [place] % (Auto) 11.9 Eos % (Auto) 3.8 Baso % (Auto) 0.9 Neut # (Auto) 4600 Lymph # (Auto) 1700 [place] # (Auto) 900 Eos # (Auto) 300 Baso # (Auto) 100 Sodium 139 Potassium 4.1 Chloride 105 Carbon Dioxide 25 BUN 21 H Creatinine 0.88 Estimated GFR > 60 BUN/Creatinine Ratio 23.9 H Glucose 107 H Lactate Calcium 9.1 Total Bilirubin 0.6 AST 36 ALT 61 H Alkaline Phosphatase 68 Ammonia < 9 L Total Protein 6.4 Albumin 3.9 Globulin 2.5 Albumin/Globulin Ratio 1.6 Lipase 92 Urine RBC None seen Urine WBC None seen Ur Squamous Epith Cells None seen Urine Bacteria None seen Ur Culture Indicated? Cult not indicated Vol Urine Centrifuged 10ml (spun) Gastric Fluid pH Gastric Occult Blood Blood Type Antibody Screen PFSH Social History household members: spouse and children Tobacco & Substance Use Smoking Status: Never smoker Assessment & Plan Assessment and plan (1) Small bowel obstruction: Status: Acute (2) Acute upper GI bleeding: Status: Acute Assessment & Plan narrative: He has not anemic or tachycardic, suspect that the blood from the emesis might be from gastritis or a very mild Mickie-Li tear. Contrast challenge to see if this was truly a bowel obstruction. Given that he has had no previous abdominal surgery, I have a higher index of suspicion that he would need laparoscopy today. Time-Based Coding :: [TOTAL MINUTES] spent with patient and on the chart (including review of chart, obtaining history, exam, reviewing outside data, placing orders, documenting exam and treatment plan, and counseling patient) on [DATE]. PROFEE Charge Codes Inpatient or Observation consultation: 15808
[2024-04-08 12:17] LABS: Hematocrit 41.2 % (41-53); Hemoglobin 13.7 g/dL (13.5-17.5)
[2024-04-09 01:17] VITALS: BP 123/81; PULSE 85; RESP 19; TEMP 37.2; O2SAT 96
[2024-04-09] MEDS: SODIUM CHLORIDE 0.9% 1,000 ML 100 ML IV (01:18)
[2024-04-09 06:31] VITALS: BP 127/83; PULSE 88; RESP 17; TEMP 36.6; O2SAT 92
[2024-04-09 06:47] LABS: Hematocrit 38.7 % (41-53); Hemoglobin 12.8 g/dL (13.5-17.5); Mean Corpuscular HGB Conc 33.2 % (30-36); Mean Corpuscular Hemoglobin 29.1 PG (26-34); Mean Corpuscular Volume 87.7 fL (80-100); Platelet Count 219 X10^3/uL (150-400); Red Blood Cell Count 4.41 X10^6/uL (4.5-5.9); Red Cell Distribution Width 13.8 % (11.6-14.8); White Blood Cell Count 7.1 X10^3/uL (4.5-11.0)
[2024-04-09 06:57] LABS: BUN Creatinine Ratio 22.1 (6-22); Blood Urea Nitrogen 19 mg/dL (9-20); Calcium 8.6 mg/dL (8.4-10.2); Carbon Dioxide 26 mmol/L (22-32); Chloride 108 mmol/L (98-107); Estimated Glomerular Filt Rate > 60 mL/min (>60); Glucose 84 mg/dL (70-100); HEMOLYSIS < 15 (0-50); Sodium 140 mmol/L (137-145)
[2024-04-09] MEDS: PANTOPRAZOLE 40 MG VIAL IV ×2 (09:06→20:44)
[2024-04-09 12:50] LABS: Hematocrit 42.2 % (41-53); Hemoglobin 14.1 g/dL (13.5-17.5)
[2024-04-09 16:37] VITALS: BP 148/94; PULSE 77; RESP 16; TEMP 36.4; O2SAT 95
--- NOTE | 2024-04-09 17:17 | PM.PN.1 ---
Subjective Subjective Interval history: Patient having small liquid stools today. Not black or red. No nausea, but did have some bloating after a general diet for lunch. Exam Vital Signs (past 8 hours): - 04/09/24 16:37 Temperature 97.5 F L Pulse Rate 77 Respiratory Rate 16 Blood Pressure 148/94 H Pulse Oximetry 95 Oxygen Flow Rate 0 Oxygen Delivery Method Nasal Cannula Oxygen Flow Rate 0 Narrative Exam Narrative: Gen: NAD, sitting comfortably in bed, appears well HEENT: Sclera are anicteric, head is normocephalic and atraumatic, trachea is midline. CV: RRR, no JVD Resp: clear to auscultation bilaterally, equal chest wall movement bilaterally Abd: soft, nontender, distended Ext: no edema, full range of motion Neuro: Cranial nerves II-XII grossly intact, no focal deficits Skin: No erythema or ecchymosis Objective Labs 04/09/24 12:39 04/09/24 06:23 Labs: Laboratory Results - last 24 hr 04/09/24 04/09/24 06:23 12:39 WBC 7.1 RBC 4.41 L Hgb 12.8 L 14.1 Hct 38.7 L 42.2 MCV 87.7 MCH 29.1 MCHC 33.2 RDW 13.8 Plt Count 219 Sodium 140 Potassium 4.0 Chloride 108 H Carbon Dioxide 26 BUN 19 Creatinine 0.86 Estimated GFR > 60 BUN/Creatinine Ratio 22.1 H Glucose 84 Calcium 8.6 PFSH Social History household members: spouse and children Smoking Status: Never smoker Assessment & Plan Assessment & Plan narrative: 1. Small bowel obstruction. Present on admission and active. 2. Possible upper GI bleed. Present on admission and active. 3. Depression. Stable. 4. Obesity class 2 with BMI of 35, stable. Plan: -advanced to general diet, developed bloating after lunch today, will watch overnight given unclear presentation with SBO vs bleeding to make sure of ability to tolerate diet and that obstruction is truly resolved. -continue protonix IV BID, h/h finally uptrended this afternoon. -no recommendation for surgery or endoscopy at this time. Dispo: suspect discharge home tomorrow if tolerating diet and stable h/h. DVT prophylaxis SCDs due to GI bleeding. CODE STATUS full code. Patient with a 2 midnight stay, supports inpatient status. Time-Based Coding :: [TOTAL MINUTES] spent with patient and on the chart (including review of chart, obtaining history, exam, reviewing outside data, placing orders, documenting exam and treatment plan, and counseling patient) on [DATE]. Quality VTE Deep Vein Thrombosis/Pulmonary Embolism Present on Admission: No
[2024-04-09 20:00] VITALS: BP 158/91; PULSE 77; RESP 18; TEMP 36.5; O2SAT 97
[2024-04-09] MEDS: buPROPion SR 150 MG TAB PO (20:44)
[2024-04-10] VITALS: BP 144/89; PULSE 86; RESP 18; TEMP 36.7; O2SAT 99
[2024-04-10 04:00] VITALS: BP 146/86; PULSE 86; RESP 18; TEMP 37; O2SAT 99
[2024-04-10 06:23] LABS: Hematocrit 38.9 % (41-53); Mean Corpuscular HGB Conc 33.4 % (30-36); Mean Corpuscular Hemoglobin 29.2 PG (26-34); Mean Corpuscular Volume 87.3 fL (80-100); Platelet Count 236 X10^3/uL (150-400); Red Blood Cell Count 4.45 X10^6/uL (4.5-5.9); Red Cell Distribution Width 13.5 % (11.6-14.8); White Blood Cell Count 5.2 X10^3/uL (4.5-11.0)
[2024-04-10 06:36] LABS: BUN Creatinine Ratio 14.8 (6-22); Blood Urea Nitrogen 12 mg/dL (9-20); Calcium 8.6 mg/dL (8.4-10.2); Carbon Dioxide 26 mmol/L (22-32); Chloride 107 mmol/L (98-107); Estimated Glomerular Filt Rate > 60 mL/min (>60); Glucose 98 mg/dL (70-100); HEMOLYSIS < 15 (0-50); Potassium 3.9 mmol/L (3.4-5.1); Sodium 139 mmol/L (137-145)
[2024-04-10 08:00] VITALS: BP 136/97; PULSE 81; RESP 20; TEMP 36.5; O2SAT 97
[2024-04-10] MEDS: buPROPion SR 150 MG TAB PO (08:59)
--- NOTE | 2024-04-10 09:31 | PM.DS.1 ---
History of Present Illness History of Present Illness Date Patient Seen: 04/10/24 Time Patient Seen: 09:31 Chief complaint: abd px Narrative: Per admitting provider, From night doctor: 43-year-old male with past medical history of depression low denies any prior history of abdominal surgery presents with abdominal pain. Per the patient's report, the patient started to have upper abdominal pain earlier this morning. The patient started to have nausea and nonbloody vomiting. The patient denies any prior history of GI bleeding and has never had an endoscopy before. The patient denies any alcohol abuse or any excessive use of NSAID. Otherwise the patient denies any diarrhea, bloody stool, melena fever, chills, chest pain, shortness of breath, coughing or dysuria. In our emergency room, the patient was hemodynamically stable. Labs were relatively benign with hemoglobin 16. ALT 81. Patient did have an emesis that was coffee-ground while in our ER per the ER physician which was occult positive. CT scan shows signs of small bowel obstruction. The patient was given IV fluid, IV antiemetic, pain control as well as IV pantoprazole. General surgery was consulted and recommended to admit the patient. NG tube was placed. Subjective: He denies history of abdomen surgery or bowel obstruction. His symptoms began yesterday abruptly. No flatus or BM overnight. He was still somewhat distended. Denies smoking, does drink alcohol about 1 drink a day. No history of ulcers. NG tube has improved his symptoms. General surgery is consulted and this is pending. Discharge Providers Provider Date of admission: 04/08/24 02:37 Discharge Date: 04/10/24 Primary care physician: Doctor Ramon MD Consults: 04/08/24 10:38 Consult to General Surgery Routine Comment: Consulting Provider: Farhan Oneil Reason for consultation: SBO,. hemmatemesis Has provider been notified: Yes Discharge provider: Solomon Cueva DO Summary Hospital Course Discharge Diagnosis: 1. Small bowel obstruction. Present on admission and active. 2. Possible upper GI bleed. Present on admission and active. 3. Depression. Stable. 4. Obesity class 2 with BMI of 35, stable. Hospital Course: This is a 43 year old male with PMH of depression and obesity who was admitted with acute abdominal pain and CT scan showing a small bowel obstruction. H/h also trended down and he was started on PPI for possilbe GI bleeding with reported hematemesis. This may have been due to esophageal tear but not entirely clear. NG tube was placed initially and SBO seemingly resolved after gastrograffin challenge. Surgery was consulted and did not recommend any surgical interventions at this time and given improvement/rise in h/h he was deemed stable for outpatient endoscopy. For now he was continued on PPI at discharge. Recommend referral to surgeon or GI for outpatient endoscopy with primary care provider. Time Spent with Patient Time spent: Greater than 30 minutes Exam Vital Signs (past 8 hours): - 04/10/24 04:00 04/10/24 08:00 Temperature 98.6 F 97.7 F Pulse Rate 86 81 Respiratory Rate 18 20 Blood Pressure 146/86 H 136/97 H Pulse Oximetry 99 97 Oxygen Flow Rate 0 0 Oxygen Delivery Method Nasal Cannula Oxygen Flow Rate 0 Narrative Exam Narrative: Gen: NAD, sitting comfortably in bed, appears well HEENT: Sclera are anicteric, head is normocephalic and atraumatic, trachea is midline. CV: RRR, no JVD Resp: clear to auscultation bilaterally, equal chest wall movement bilaterally Abd: soft, nontender, distended Ext: no edema, full range of motion Neuro: Cranial nerves II-XII grossly intact, no focal deficits Skin: No erythema or ecchymosis Objective Labs 04/10/24 06:00 04/10/24 06:00 Labs: Laboratory Results - last 24 hr 04/09/24 04/10/24 12:39 06:00 WBC 5.2 RBC 4.45 L Hgb 14.1 13.0 L Hct 42.2 38.9 L MCV 87.3 MCH 29.2 MCHC 33.4 RDW 13.5 Plt Count 236 Sodium 139 Potassium 3.9 Chloride 107 Carbon Dioxide 26 BUN 12 Creatinine 0.81 Estimated GFR > 60 BUN/Creatinine Ratio 14.8 Glucose 98 Calcium 8.6 PFSH Social History household members: spouse and children Smoking Status: Never smoker Discharge Plan Discharge Plan Patient Disposition: Home Provider Discharge Comment: You were admitted to the hospital with a bowel obstruction and bleeding from probably an esophageal tear. Recommend PCP follow up by next week, with probable referral to a GI doctor or surgeon for upper endoscopy after discharge. For now continue oral pantoprazole twice a day. Discharge orders & Medications Prescriptions: New pantoprazole 40 mg tablet,delayed release (DR/EC) 40 mg PO BID 30 Days Qty: 60 0RF Continued bupropion HCl [Wellbutrin SR] 150 mg Tablet Sustained-Release 12 Hr 150 mg PO BID Follow up/Referrals: Dannianeous,Doctor, [Primary Care Provider] - Discharge Health Status Multidrug resistant organism: No MDRO Diet/Activity/Treatments Diet: Diet as Tolerated and Regular Activity: As tolerated, no restrictions. Skin/Wound/Dressing Care Report to your healthcare provider any signs of infection, such as:: increased pain Visit Report/Discharge Packet Instructions: Small Bowel Obstruction, DI for Small Bowel Obstruction, Gastrointestinal Bleeding Stand Alone Forms: Patient Portal/API, Stroke Signs & Symptoms Discharge Data Primary Care Provider: Doctor Ramon Quality VTE Deep Vein Thrombosis/Pulmonary Embolism Present on Admission: No
--- NOTE | 2024-04-10 11:22 | PC.NURSE ---
Day shift: Paperwork signed and all questions answered. Spouse in room for d/c teachings. New script sent to Pt's pharmacy electronic. Pt with no complainants of pain. Pt has all personal belongings. Left unit at approx 1120 and wanted to ambulate. Has been steady on feet and independent in room. Walked out with his Spouse and PCT Shauna.
== END 2024-04-10 11:24 | disposition home or self-care (01) | DRG 388 ==
LOC: ED 04-08 02:13 → AC 04-08 03:11
PROVIDERS: Hospitalist; Internal Medicine; Admitting Provider Internal Medicine; Emergency Provider Emergency Medicine; Referring Provider Emergency Medicine; Visit Provider Internal Medicine
DX: K56.609 Unspecified intestinal obstruction, unspecified as to partial versus complete obstruction (principal); K22.6 Gastro-esophageal laceration-hemorrhage syndrome; F32.A Depression, unspecified; I10 Essential (primary) hypertension; F41.9 Anxiety disorder, unspecified; E66.812 Obesity, class 2; Z68.35 Body mass index [BMI] 35.0-35.9, adult
CPT/HCPCS: 36415; 71045; 74018; 74177; 80048; 80053; 81003; 81015; 82140; 82271; 83605; 83690; 83986; 85014; 85018; 85025; 85027; 86850; 86900; 86901; 94762; 96374; 96375; 99232; 99285; 99291; J2060; J2405; J2470; Q9967

== ENCOUNTER → 2024-05-27 11:00 | Outpatient (CLI) | payer OTHER, SELFPAY ==
[2024-04-08 03:14] VITALS: BMI 35.4
[2024-05-27 11:46] LABS: Cholesterol 185 mg/dL (140-199); HDL Cholesterol 38 mg/dL (40-60); LDL Cholesterol Calculated 120 mg/dL (<100); Triglycerides 136 mg/dL (35-150)
[2024-05-27 11:48] LABS: Hemoglobin A1C% w Est Avg Glu 5.3 % (4.0-6.0)
== END ==
PROVIDERS: PCP Family Medicine; Referring Provider Family Medicine; Visit Provider Family Medicine
DX: E66.9 Obesity, unspecified (principal); Z83.3 Family history of diabetes mellitus
CPT/HCPCS: 36415; 80061; 83036

== ENCOUNTER → 2024-05-30 11:59 | Outpatient (CLI) | payer OTHER, SELFPAY ==
[2024-04-08 03:14] VITALS: BMI 35.4
--- NOTE | 2024-05-30 12:00 | DI.RAD.S_ITS ---
PROCEDURE: XR CHEST 2V INDICATIONS: Pertussis exposure, cough TECHNIQUE: 2 views of the chest were acquired. COMPARISON: [facility], SONIDO, XR CHEST 1V, 04/08/2024, 8:51. [facility], CR, XR CHEST 2V, 11/24/2023, 15:11. FINDINGS: Surgical changes and devices: None. Lungs and pleura: Lungs are clear. No pleural effusions or pneumothorax. Mediastinum: Mediastinal contours are normal. Heart size is normal. Bones and chest wall: No suspicious bony abnormalities. Soft tissues appear unremarkable. IMPRESSION: No acute cardiopulmonary abnormality is seen. Approved by: Dominick Flores M.D. on 05/30/2024 at 12:16
== END ==
PROVIDERS: PCP Family Medicine; Referring Provider Family Medicine; Visit Provider Family Medicine
DX: Z20.818 Contact with and (suspected) exposure to other bacterial communicable diseases (principal); R05.9 Cough, unspecified
CPT/HCPCS: 71046

== ENCOUNTER 2024-07-24 13:20 | Day surgery (SDC) | payer OTHER, SELFPAY ==
[2024-04-08 03:14] VITALS: BMI 35.4
[2024-07-24 14:27] VITALS: BP 133/79; PULSE 73; RESP 16; TEMP 36.3; O2SAT 96
[2024-07-24] MEDS: LACTATED RINGERS 1,000 ML 42 ML IV (14:30)
--- NOTE | 2024-07-24 14:58 | PM.HP.IH.1 ---
History of Present Illness History of Present Illness Date Patient Seen: 07/24/24 Time Patient Seen: 14:59 Chief complaint: SDC Narrative: Bronson is a 43-year-old man who presents for an EGD and colonoscopy for anemia. See the April office note for details. [facility] Social History household members: spouse and children Smoking Status: Never smoker Meds Home Medications and Allergies Home Medications ?Medication ?Instructions ?Recorded ?Confirmed ?Type bupropion HCl 150 mg tablet,12 hr 150 mg PO BID #180 ea 04/14/24 07/24/24 Rx sustained-release (Wellbutrin SR) losartan 25 mg tablet 25 mg PO DAILY #30 tabs 05/30/24 07/24/24 Rx naltrexone 50 mg tablet 25 mg (1/2 x 50 mg) PO DAILY #30 05/30/24 07/24/24 Rx tabs pantoprazole 40 mg tablet,delayed 40 mg PO DAILY #30 tabs 05/30/24 07/24/24 Rx release Allergies Allergy/AdvReac Type Severity Reaction Status Date / Time No Known Drug Allergies Allergy Verified 07/24/24 14:16 Exam Vital Signs (past 8 hours): - 07/24/24 14:27 Temperature 97.3 F L Pulse Rate 73 Respiratory Rate 16 Blood Pressure 133/79 Pulse Oximetry 96 Oxygen Delivery Method Room Air Oxygen Delivery Method Room Air Const General: No acute distress Assessment & Plan Assessment and plan (1) Anemia: Qualifiers: Anemia type: unspecified type Qualified Code(s): D64.9 - Anemia, unspecified Status: Acute Plan EGD and colonoscopy Time-Based Coding :: [TOTAL MINUTES] spent with patient and on the chart (including review of chart, obtaining history, exam, reviewing outside data, placing orders, documenting exam and treatment plan, and counseling patient) on [DATE]. PROFEE Trainer Document charge(s): No
--- NOTE | 2024-07-24 15:33 | PM.OP.EC ---
Operative Date/Time/Diagnoses Date of procedure: 07/24/24 Time of procedure: 15:33 Pre-op diagnosis: Anemia Post-op diagnosis: same Procedure & Clinicians Study performed: EGD and colonoscopy Same procedure as scheduled: Yes Surgeon: Bronson Greenfield Procedure Notes Procedure in detail: Surgeon: Bronson Greenfield MD Anesthesia: Amanda Welsh CRNA Procedure in detail: A timeout was performed. A bite blocked was placed and monitors were attached to the patient. The patient was positioned in the left lateral decubitus position. Sedation was administered. Once the patient was sedated the endoscope was inserted through the bite block and passed through the esophagus and stomach and into the duodenum. No abnormalities were found. We then withdrew the scope into the stomach. No abnormalities were seen. The endoscope was retroflexed and no hiatal hernia was seen. The endoscope was straightned and withdrawn into the esophagus. No abnormalities were seen. EGD findings: Normal EGD Next we repositioned the patient for a colonoscopy. A digital rectal exam was performed and was normal. The colonoscope was inserted and advanced to the cecum. The appendiceal orifice was identified and photographed. The scope was slowly withdrawn over greater than 6 minutes. No polyps or other abnormalities were found. The scope was retroflexed in the rectum and no abnormalities were found Colonoscopy findings: Normal colonoscopy Total procedural EBL: 0 Scope withdrawal time: 6 minutes Sedation minutes: 16 minutes Post-procedure Recommendations: Colonscopy in 10 years Disposition: PACU
[2024-07-24 15:36] VITALS: BP 97/53; PULSE 77; RESP 18; TEMP 36.3; O2SAT 98
[2024-07-24 15:41] VITALS: BP 103/70; PULSE 70; RESP 17; O2SAT 97
[2024-07-24 15:46] VITALS: BP 114/69; PULSE 77; RESP 14; O2SAT 97
[2024-07-24 15:54] VITALS: BP 112/74; PULSE 75; RESP 22; TEMP 36.7; O2SAT 96
== END 2024-07-24 16:00 | disposition home or self-care (01) ==
PROVIDERS: PCP Family Medicine; Referring Provider Surgery; Visit Provider Surgery
PROC: 0DJ08ZZ Inspection of Upper Intestinal Tract, Via Natural or Artificial Opening Endoscopic (ICD-10-PCS; CPT 43235; principal; 2024-07-24 14:30)
PROC: 0DJD8ZZ Inspection of Lower Intestinal Tract, Via Natural or Artificial Opening Endoscopic (ICD-10-PCS; CPT 45378; 2024-07-24 14:30)
DX: D64.9 Anemia, unspecified (principal)
CPT/HCPCS: 43235; 45378; J2704